=== PATIENT | male | born 1960 | race African-American/Black ===

== ENCOUNTER 2022-12-27 18:23 | Emergency (ER) | payer OTHER, SELFPAY ==
--- NOTE | ~2022-12-27 | XR_ITS ---
EXAMINATION: XR finger 5th RT min 2V DATE: 12/27/2022 19:09 INDICATION: Smashing injury to the right fifth digit TECHNIQUE: Dorsal palmar, lateral and 2 oblique views of the right fifth digit were obtained COMPARISON: None FINDINGS: Comminuted fracture of the tuft and distal diaphysis of the right fifth distal phalanx. There is 2-3 mm distal distraction and 40 degrees palmar angulation of the distal tuft fragment. Soft tissue swell ing about the fifth digit. Alignment is otherwise normal. No other fractures identified. Joint spaces are normal. IMPRESSION: 1. Mildly displaced and angulated, mildly comminuted fractures at the distal aspect of the right fift h distal phalanx. If there is associated nailbed injury this would be considered equivalent of an ope n/compound fracture. Reviewed, dictated and finalized at location A. IMPRESSION: 1. Mildly displaced and angulated, mildly comminuted fractures at the distal as pect of the right fifth distal phalanx. If there is associated nailbed injury t his would be considered equivalent of an open/compound fracture.
[2022-12-27 18:32] VITALS: BP 133/81; PULSE 100; RESP 16; TEMP 36.3; O2SAT 99
--- NOTE | 2022-12-27 19:18 | ED.WOUNDLAC ---
HPI - Wound/Laceration General Chief Complaint: Wound/Laceration <Nikky Feliciano PA-C - Last Filed: 12/27/22 22:05> Stated Complaint: finger laceration <Nikky Feliciano PA-C - Last Filed: 12/27/22 22:05> Time Seen by Provider: 12/27/22 18:49 <Nikky Feliciano PA-C - Last Filed: 12/27/22 22:05> Source: patient <MEE Da Silva Last Filed: 12/27/22 22:05> Mode of arrival: ambulatory <Nikky Feliciano PA-C - Last Filed: 12/27/22 22:05> Limitations: no limitations <Nikky Feliciano PA-C - Last Filed: 12/27/22 22:05> History of Present Illness HPI narrative: This is a 62-year-old male that presents to the emergency department for a laceration of the right 5th finger sustained just prior to arrival. Reports he is trying to change a tire and the tire fell into his hand. This sustained an injury to the right 5th finger distal phalanx. Reports bleeding and pain in the area. He is not up-to-date on tetanus. Reports decreased range of motion. Denies numbness. <Nikky Feliciano PA-C - Last Filed: 12/27/22 22:05> Related Data Allergies/Adverse Reactions: Allergies Allergy/AdvReac Type Severity Reaction Status Date / Time No Known Allergies Allergy Verified 12/27/22 19:27 <Nikky Feliciano PA-C - Last Filed: 12/27/22 22:05> Review of Systems Review of Systems: CONSTITUTIONAL: Denies fever SKIN: Reports laceration MUSCULOSKELETAL: Reports joint pain NEUROLOGIC: Denies numbness <Nikky Feliciano PA-C - Last Filed: 12/27/22 22:05> All systems reviewed & are unremarkable except as noted in HPI and below <Nikky Feliciano PA-C - Last Filed: 12/27/22 22:05> [facility] Past Medical History Medical History: Medical History (Updated 12/27/22 @ 22:00 by Nikky L. Feliciano, PA-C) History of diabetes mellitus History of hypertension <Nikky Feliciano PA-C - Last Filed: 12/27/22 22:05> Social History Social History: Social History (Updated 12/27/22 @ 22:00 by Nikky Feliciano PA-C) Smoking status: Never smoker <Nikky Feliciano PA-C - Last Filed: 12/27/22 22:05> Exam Narrative: GENERAL: Well-appearing, well-nourished, and in no acute distress. HEAD: Normocephalic, atraumatic. EYES: EOMI. EXTREMITIES: Normal ROM in the right 5th finger PIP joint. Decreased ROM in the right 5th finger DIP joint. 2cm irregular, complex laceration to the distal phalanx involving the nail. Normal sensation. Normal capillary refill SKIN: Warm, dry, no rash. NEURO: No focal deficits. Alert and oriented x3. PSYCH: Normal mood and affect <Nikky Feliciano PA-C - Last Filed: 12/27/22 22:05> Course Course Emergency Course: Patient was educated on wound care. Instructed to follow-up with a hand surgeon back home <Nikky Feliciano PA-C - Last Filed: 12/27/22 22:05> [employer]/PA Physician Supervision For this patient encounter, I reviewed the [employer]ER or PA documentation, treatment plan, and I was responsible for the medical decision making; and I had [id number] time with this patient. <Tolu Levine MD - Last Filed: 12/27/22 22:13> Consultations Consultation #1: Spoke with Dr. Foley about patient and workup. Will suture skin with absorbable suture and he can follow-up in clinic. <Nikky Feliciano PA-C - Last Filed: 12/27/22 22:05> Date: 12/27/22 <Nikky Feliciano PA-C - Last Filed: 12/27/22 22:05> Time: 21:00 <Nikky Feliciano PA-C - Last Filed: 12/27/22 22:05> Vital Signs Vital signs: Vital Signs Temperature 97.3 F L 12/27/22 18:32 Pulse Rate 100 12/27/22 18:32 Respiratory Rate 16 12/27/22 18:32 Blood Pressure 133/81 12/27/22 18:32 Pulse Oximetry 99 12/27/22 18:32 Oxygen Delivery Room Air 12/27/22 18:32 Temperature 97.3 F L 12/27/22 18:32 Pulse Rate 100 12/27/22 18:32 Respiratory Rate 16 12/27/22 18:32 Blood Pressure 133/81 12/27/22 18:32 Pulse Oximetry 99 12/27/22 18:32 Oxygen Delivery Room A
[2022-12-27] MEDS: TETANUS,DIPHTHERIA,AC PERTUSSIS ADULT (0.5 ML) BOOSTRIX IM (19:28)
[2022-12-27] MEDS: HYDROcodone/acetaminophen (*CRX) 5-325 MG TABLET 1 TAB PO (19:41)
== END 2022-12-27 22:23 | disposition home or self-care (01) ==
PROVIDERS: Emergency Provider Physician Assistant
DX: S62.636B Displaced fracture of distal phalanx of right little finger, initial encounter for open fracture (principal); Z23 Encounter for immunization; E11.9 Type 2 diabetes mellitus without complications; I10 Essential (primary) hypertension; W20.8XXA Other cause of strike by thrown, projected or falling object, initial encounter
CPT/HCPCS: 12001; 73140; 90471; 90715; 99283; A9270